=== PATIENT | female | born 1970 | race Caucasian/White ===

== ENCOUNTER → 2021-12-01 13:28 | Outpatient (BNVA) | payer SELFPAY | PROVIDERS: Family Provider Family Medicine; PCP Family Medicine; Visit Provider Nurse Practitioner Family | DX: R39.9 Unspecified symptoms and signs involving the genitourinary system (principal); N39.0 Urinary tract infection, site not specified; R31.9 Hematuria, unspecified | CPT/HCPCS: 81000 ==

== ENCOUNTER 2024-02-05 05:33 | Inpatient (IN) | payer SELFPAY ==
[2024-02-05] VITALS (82 sets, daily range): BP systolic 71–166; BP diastolic 51–123; PULSE 83–134; RESP 13–35; TEMP 36.8–37.1; O2SAT 8–100; BMI 31.2; BMI 30.9
--- NOTE | 2024-02-05 05:39 | XRR_ITS ---
PROCEDURE INFORMATION: Exam: XR Chest Exam date and time: 02/05/2024 5:45 AM Age: 53 years old Clinical indication: Pain; Chest pressure; Additional info: Cp TECHNIQUE: Imaging protocol: Radiologic exam of the chest. Views: 1 view. COMPARISON: No relevant prior studies available. FINDINGS: Lungs: Unremarkable. No consolidation. Pleural spaces: Unremarkable. No pleural effusion. No pneumothorax. Heart/Mediastinum: Unremarkable. No cardiomegaly. Bones/joints: Unremarkable. XR/XR chest 1V portable [id number] IMPRESSION: No acute findings.
[2024-02-05] MEDS: aspirin 325 mg Tablet PO (05:47)
[2024-02-05] MEDS: clopidogrel 300 mg Tablet 600 MG PO (05:47)
[2024-02-05] MEDS: heparin 5,000 unit/mL INJ 1 mL 4000 UNIT IVP (05:48)
--- NOTE | 2024-02-05 05:49 | ECG_ITS ---
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 Measurements Intervals [place] Rate: 117 P: 80 SC: 152 QRS: 115 QRSD: 101 T: 110 QT: 438 QTc: 613 Interpretive Statements SINUS TACHYCARDIA LEFT POSTERIOR FASCICULAR BLOCK [QRS AXIS > 109, INFERIOR Q] LATERAL MYOCARDIAL INFARCTION , PROBABLY RECENT [40+ ms Q WAVE AND/OR ST/T ABNORMALITY IN I/aVL/V5/V6] ACUTE IA No previous ECG available for comparison Electronically Signed On 02-08-2024 20:39:28 DOUBLE END TENON OPERATOR by Xu Abdul M.D. [id number]
--- NOTE | 2024-02-05 05:50 | ED_ITS ---
HPI - Chest Pain 2 General: Chief Complaint: Chest Pain Stated Complaint: chest pain Time Seen by Provider: 02/05/24 05:39 Source: patient Mode of arrival: ambulatory Limitations: no limitations History of Present Illness: 53-year-old female states she started hills ving chest pain left side of her chest roughly 3 hours ago. States she woke up with it at sharp pressure-like pain left side of her chest she rates a 9 out of 10. She had some dyspnea earlier denies any shortness of breath currently. She denies any worsening improving factors. No history of coronary artery disease states she has a history of hypertension is a smoker. Associated symptoms: Deny abdominal pain, dyspnea, fever(s), nausea or vomiting Related Data Previous Rx's Medication Instructions Recorded nitrofurantoin 100 mg PO Q12H 5 days #10 caps 12/01/21 monohydrate/macrocrystals 100 mg capsule (Macrobid) Allergies Allergy/AdvReac Type Severity Reaction Status Date / Time ciprofloxacin [From Cipro] Allergy ADR-Nausea Verified 02/05/24 05:39 Sulfa (Sulfonamide Allergy ALGY-Rash Verified 02/05/24 05:39 Antibiotics) Review of Systems 2 Const: Denies: fever(s), chills, body aches or change in appetite ENMT: Denies: throat pain or dental pain Card: Reports: chest pain Resp: Denies: dyspnea GI: Denies: abdominal pain, nausea, vomiting or diarrhea Musc: Denies: neck pain or back pain Skin/Breast: Denies: rash Neuro: Denies: headache(s) Physical Exam 2 Const: COMMON NORMALS: patient oriented x3 HENMT: COMMON NORMALS: normocephalic and atraumatic HEAD & SCALP: n ormocephalic and atraumatic Eye: COMMON NORMALS: Equal, round and reactive pupils present and EOMs intact bilaterally PUPIL: Yes Equal, round and reactive pupils present Neck/C-Spine: COMMON NORMALS: full ROM and supple Chest: COMMONS NORMALS: normal inspection of the chest and normal palpation of entire chest wall Resp: COMMON NORMALS: normal respiratory effort, No retractions, No use of accessory muscles and clear to auscultation bilaterally AUSCULTATION: clear to auscultation bilaterally Cardio: COMMON NORMALS: regular rate, regular rhythm and No murmurs present (Cardio) RATE: regular rate RHYTHM: regular rhythm GI: COMMON NORMALS: Normal to inspection, nondistended, normoactive bowel sounds present, Soft to palpation, non-tender and no masses PALPATION: Yes Soft to palpation Extremity: COMMON NORMALS: normal to inspection and full ROM Neuro: COMMON NORMALS: patient oriented x3, moves all extremities and no focal motor deficits Psych: COMMON NORMALS: mental status grossly normal, Normal thought process present and cooperative THOUGHT PROCESS: Normal thought process present Skin: COMMON NORMALS: no rashes or lesions noted and no wounds GENERAL SKIN EXAM: no rashes or lesions noted Course 2 Vital Signs: Vital signs: Vital Signs Temperature 98.7 F 02/05/24 05:38 Pulse Rate 114 H 02/05/24 07:00 Respiratory Rate 23 H 02/05/24 07:00 Blood Pressure 124/84 02/05/24 07:00 Pulse Oximetry 96 02/05/24 07:00 Oxygen Delivery Me thod Room Air 02/05/24 06:10 MDM - Chest Pain Medical Decision Making Patient presents here with chest pain EKG showed some concerning findings with minimal elevation did call STEMI alert and reviewed the EKG with production support engineer and does not have the 2 mm criteria for STEMI at this time stimulator was called off to do repeat EKGs that showed no changes had a mild troponin elevation she is continued to have pain here consistent with unstable angina patient was seen in the ER by production support engineer and is taking to the Lawn And Garden Technician for unstable angina. Medical Records I reviewed the patient's medical records. Lab Data I reviewed the patient's lab results. 02/05/24 05:45 02/05/24 05:45 Radiology Impressions Chest X-Ray 02/05/24 05:39 IMPRESSION: No acute findings. Laboratory Results WBC 13.70 10^3/uL (3.29-11.43) H 02/05/24 05:45 RBC 4.93 10^6/uL (3.85-5.65) 02/05/24 05:45 Hgb 8.40 g/dL (11.27-16.99) L 02/05/24 05:45 Hct 31.2 % (36-47) L 02/05/24 05:45 MCV 63.3 fl (85-98) L 02/05/24 05:45 MCH 17.0 pg (27-33) L 02/05/24 05:45 MCHC 26.9 g/dL (30-55) L 02/05/24 05:45 RDW 19.7 % (12.1-15.1) H 02/05/24 05:45 Plt Count 438 10^3/cmm (157-399) H 02/05/24 05:45 MPV 9.3 fL (7.4-10.4) 02/05/24 05:45 Neut % (Auto) 80.6 % 02/05/24 05:45 Lymph % (Auto) 15.9 % 02/05/24 05:45 [place] % (Auto) 2.6 % 02/05/24 05:45 Eos % (Auto) 0.0 % 02/05/24 05:45 Baso % (Auto) 0.5 % 02/05/24 05:45 Neut # (Auto) 11.04 10^3/uL (1.8-7.7) H 02/05/24 05:45 Lymph # (Auto) 2.2 10^3/uL (0.8-4.8) 02/05/24 05:45 [place] # (Auto) 0.4 10^3/uL (0.2-0.9) 02/05/24 05:45 Eos # (Auto) 0.0 10^3/uL (0.0-0.8) 02/05/24 05:45 Baso # (Auto) 0.1 10^3/uL (0.0-0.1) 02/05/24 05:45 Nucleated RBC % (auto) 0 % 02/05/24 05:45 Nucleated RBCs # 0.0 /100WBC 02/05/24 05:45 D-Dimer 0.44 ug/mLFEU (0-0.59) 02/05/24 05:45 Sodium 136 mmol/L (136-145) 02/05/24 05:45 Potassium 3.1 mmol/L (3.5-5.1) L 02/05/24 05:45 Chloride 97 mmol/L (98-107) L 02/05/24 05:45 Carbon Dioxide 21 mmol/L (22-29) L 02/05/24 05:45 Anion Gap 21.1 (5-19) H 02/05/24 05:45 BUN 5 mg/dL (6-20) L 02/05/24 05:45 Creatinine 0.7 mg/dL (0.5-0.9) 02/05/24 05:45 GFR Calculation 87.9 mL/min (90-130) L 02/05/24 05:45 Glucose 161 mg/dL (65-115) H 02/05/24 05:45 Calculated Osmolality 283 mOsm/kg (285-295) L 02/05/24 05:45 Calcium 9.2 mg/dL (8.5-10.5) 02/05/24 05:45 Total Bilirubin 0.6 mg/dL (0.15-1.2) 02/05/24 05:45 AST 18 U/L (0-32) 02/05/24 05:45 ALT 11 U/L (0-33) 02/05/24 05:45 Alkaline Phosphatase 101 U/L (35-105) 02/05/24 05:45 Troponin T Baseline 82 ng/L (0-10) H 02/05/24 05:45 NT-Pro-B Natriuret Pep 2329 pg/mL (0-125) H 02/05/24 05:45 Total Protein 7.5 g/dL (6.6-8.7) 02/05/24 05:45 Albumin 4.8 g/dL (3.5-5.2) 02/05/24 05:45 Globulin 2.7 g/dL (1.3-4.6) 02/05/24 05:45 Lipase 30 U/L (13-60) 02/05/24 05:45 All radiology interpretation(s) finalized by discharge Discharge Plan Discharge Condition: Stable Prescriptions: No Action nitrofurantoin monohyd/m-cryst [Macrobid] 100 mg capsule 100 mg PO Q12H 5 Days Qty: 10 0RF Rx Instructions: must administer with a meal/food Coding Level of Care Code ED Smoking Pipe Mounter for Mervat Read
[2024-02-05 05:51] LABS: Basophils # 0.1 10^3/uL (0.0-0.1); Basophils % 0.5 %; Hematocrit 31.2 % (36-47); Lymphocytes # 2.2 10^3/uL (0.8-4.8); Lymphocytes % 15.9 %; Mean Corpuscular HGB Conc 26.9 g/dL (30-55); Mean Corpuscular Volume 63.3 fl (85-98); Mean Platelet Volume 9.3 fL (7.4-10.4); Monocytes # 0.4 10^3/uL (0.2-0.9); Monocytes % 2.6 %; Neutrophils # 11.04 10^3/uL (1.8-7.7); Neutrophils % 80.6 %; Nucleated Red Blood Cells % 0 %; Platelet Count 438 10^3/cmm (157-399); Red Blood Count 4.93 10^6/uL (3.85-5.65); Red Cell Distribution Width 19.7 % (12.1-15.1)
[2024-02-05] MEDS: ondansetron 2 mg/ML SDV 2 mL 4 MG IVP (05:52)
[2024-02-05] MEDS: morphine 4 mg/mL SDV 1 mL IVP (05:53)
--- NOTE | 2024-02-05 06:01 | ECG_ITS ---
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 Measurements Intervals [place] Rate: 113 P: 65 DC: 159 QRS: 65 QRSD: 108 T: 66 QT: 302 QTc: 415 Interpretive Statements SINUS TACHYCARDIA NONSPECIFIC ST & T-WAVE ABNORMALITY ABNORMAL RHYTHM ECG No previous ECG available for comparison Electronically Signed On 02-05-2024 21:18:03 REFRIGERATOR CAR ICER by Xu Abdul M.D. [id number]
[2024-02-05 06:07] LABS: D Dimer 0.44 ug/mLFEU (0-0.59)
[2024-02-05 06:09] LABS: Troponin(5th) Baseline 82 ng/L (0-10)
[2024-02-05 06:11] LABS: Alanine Aminotransferase 11 U/L (0-33); Albumin Level 4.8 g/dL (3.5-5.2); Alkaline Phosphatase 101 U/L (35-105); Anion Gap 21.1 (5-19); Aspartate Amino Transferase 18 U/L (0-32); Blood Urea Nitrogen 5 mg/dL (6-20); Calcium 9.2 mg/dL (8.5-10.5); Carbon Dioxide 21 mmol/L (22-29); Chloride 97 mmol/L (98-107); Creatinine Clr Calc Pharmacy 97.7173; Globulin 2.7 g/dL (1.3-4.6); Glomerular Filtration Rate 87.9 mL/min (90-130); Glucose 161 mg/dL (65-115); Lipase 30 U/L (13-60); Osmolality Calculated 283 mOsm/kg (285-295); Potassium 3.1 mmol/L (3.5-5.1); Sodium 136 mmol/L (136-145); Total Bilirubin 0.6 mg/dL (0.15-1.2); Total Protein 7.5 g/dL (6.6-8.7)
[2024-02-05] MEDS: nitroglycerin 0.4 mg sublingual Tablet SUBLINGUAL (06:41)
[2024-02-05 06:43] LABS: NT Pro B Type Natriuretic Pept 2329 pg/mL (0-125)
--- NOTE | 2024-02-05 07:04 | PC.NURSE ---
Patient became hypotensive after 1 nitroglycerin and states I feel like I am going to pass out . Patient fell back into the bed and briefly became unresponsive. Dr. Hunt notified and present at bedside. Patient's blood pressure returned to baseline shortly after awakening.
--- NOTE | 2024-02-05 07:16 | P.CONIM_ITS ---
Providers/Reason For Consult 2 Consulting Physician/Specialty*: Roldan Jc MD/cardiology Reason for Consult*: Recurrent chest pains Unstable angina Abnormal EKG Abnormal cardiac markers Tachycardia Primary Care Provider: David Kingston History of Present Illness History of Present Illness Ayana Seaman is a 53 year old female past medical history significant for continuous tobacco abuse hypertension hyperlipidemia family history of heart problem presented with chest pain which awakened her from the sleep this morning. Twelve-lead EKG has subtle ST changes not quite meeting criteria for ST elevation IL, troponin came back around 80 which is highly sensitive, since patient continues to have chest pain off and on and recurrent basis will proceed with left heart cath with the suspicion of ACS. BNP is elevated at more than 2000. X-ray chest does not consistent with pulmonary edema. D-dimer is negative. Patient has been explained all risk-benefit and alternative for procedure. She would like to proceed with it. Medications/Allergies Home Medications Medication Instructions Recorded Confirmed Last Taken Type No Known Home Medications 02/05/24 02/05/24 Unknown History Allergies Allergy/AdvReac Type Severity Reaction Status Date / Time ciprofloxacin [From Cipro] Allergy ADR-Nausea Verified 02/05/24 05:39 Sulfa (Sulfonamide Allergy ALGY-Rash Verified 02/05/24 05:39 Antibiotics) PFSH Acute 2 PFSH: Medical History (Updated 02/06/24 @ 17:37 by Roldan Jc MD) Essential hypertension Vitals/I&O/Wt Last Vital Signs Temp 98.7 F 02/05/24 05:38 Pulse 114 H 02/05/24 07:00 Resp 23 H 02/05/24 07:00 BP 124/84 02/05/24 07:00 Pulse Ox 96 02/05/24 07:00 O2 Del Method Room Air 02/05/24 06:10 Weight last 48 hrs Weight 182 lb Physical Exam 2 Const: OTHER: GENERAL: Patient is alert, awake and oriented x3. Patient is moderate distress sitting in the bed as cannot breathe when she lay down HEART: Regular S1 and S2. No murmur, rub or gallop. LUNGS: Creased breath sounds to auscultate bilaterally. CENTRAL NERVOUS SYSTEM: Grossly nonfocal. EXTREMITIES: Lower extremities with out edema bilaterally. Data 02/06/24 05:04 02/06/24 05:04 A&P Assessment and plan (1) CHF (NYHA class IV, ACC/AHA stage D): Patient is in acute decompensated systolic heart failure will proceed with IV diuretics BiPAP and to leave ischemia with left heart cath (2) NSTEMI (non-ST elevated myocardial infarction): Twelve-lead EKG is not consistent with ST elevation IL most likely patient is going through non-ST elevation IL she had a prior episodes of chest pain we will proceed with left heart cath since he continues to have chest pressure pain and worsening of shortness of breath with decompensated heart failure (3) Essential hypertension: Appear to be elevated will optimize medications (4) Tobacco abuse: Advised quitting smoking. (5) Tooth abscess: Will advise antibiotics Plan Plan for left heart catheterization on urgent basis using BiPAP diuretics as patient going through acute coronary syndrome most likely culprit left side of coronary bed Consult Attestations 2 Medical Necessity Statement: I am expecting patient stay to cross more than 2 midnight he will be admitted to the ICU given her condition post angiogram/PCI Coding Level of Care Code Acute Code for [facility] Diagnoses CHF (NYHA class IV, ACC/AHA stage D) I50.84 NSTEMI (non-ST elevated myocardial infarction) I21.4 Essential hypertension I10 Tobacco abuse Z72.0 Tooth abscess K04.7
--- NOTE | 2024-02-05 07:19 | W.PM.OPSUD ---
Surgery/Procedure H&P Update DATE OF PROCEDURE: February 05, 2024 DATE H&P PERFORMED: 02/05/24 H&P UPDATE INFORMATION: I have reviewed H&P completed within last 30 days, I have examined patient prior to procedure and No changes to prior documentation PREOP DIAGNOSIS: ACS PRIMARY INDICATION FOR PROCEDURE: Recurrent chest pain Elevated cardiac marker Abnormal EKG PATIENT REASSESSED PRIOR TO SEDATION, WITH NO CHANGE NOTED: Yes PHYSICAL EXAM: alert, oriented x 3, clear to auscultation bilaterally, regular rate & rhythm and operative site marked AIRWAY EVAL/ANESTHESIA PLAN: ASA II, Risks, benefits & alternatives of sedation and/or procedure discussed and Patient agrees to continue as planned ADDITIONAL INFORMATION: Mallampati 2
--- NOTE | 2024-02-05 07:39 | ECG_ITS ---
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 Measurements Intervals [place] Rate: 107 P: 72 KS: 135 QRS: 83 QRSD: 92 T: 62 QT: 369 QTc: 494 Interpretive Statements SINUS TACHYCARDIA ST DEPRESSION, CONSIDER SUBENDOCARDIAL INJURY [0.1+ mV ST DEPRESSION] Compared to ECG 02/05/2024 06:01:44 ST (T wave) deviation now present T-wave abnormality no longer present Electronically Signed On 02-08-2024 20:39:46 TASSEL SNIPPER by Xu Abdul M.D. [id number]
--- NOTE | 2024-02-05 08:35 | USCV_ITS ---
Ayana Seaman Age: 53 Gender: F : 1970 Exam Date: 02/05/2024 08:59 Ordering Phys: Roldan Jc MD ([email or web address]) Technologist: Exam Location: [facility] [place] Indication: nstimi BP: 138 / 101 HR: 90 Rhythm: Sinus Technical Quality: Adequate MEASUREMENTS (Male / Female) Normal Values 2D ECHO LV Diastolic Diameter PLAX 4.6 cm 4.2 - 5.9 / 3.9 - 5.3 cm IVS Diastolic Thickness 1.2 cm 0.6 - 1.0 / 0.6 - 0.9 cm IVS Systolic Thickness 1.2 cm LVPW Diastolic Thickness 1.1 cm 0.6 - 1.0 / 0.6 - 0.9 cm LVPW Systolic Thickness 1.7 cm LVOT Diameter 2.0 cm LV Ejection Fraction 2D Teich 27.7 % LV Ejection Fraction MOD 4C 18.7 % LV Ejection Fraction MOD 2C 45.3 % LV Ejection Fraction 2C AL 45.7 % LA Diameter 3.3 cm RA Systolic Volume 4C AL 42.0 ml RA Systolic Volume 4C MOD 39.2 ml Aorta at Sinotubular Diameter 2.7 cm M-MODE LA Ao Ratio MM 1.3 AV Cusp Separation MM 2.3 cm DOPPLER AV Peak Velocity 107.0 cm/s LVOT Peak Velocity 76.0 cm/s AV Area Cont Eq vti 2.6 cm squared AV Area Cont Eq pk 2.3 cm squared MV Peak Velocity 125.0 cm/s TV Peak Velocity 202.0 cm/s TR Peak Velocity 284.0 cm/s TR Peak Gradient 32.3 mmHg TV Peak E Velocity 80.0 cm/s Right Atrial Pressure 3.0 mmHg Pulmonary Artery Systolic Pressu 35.3 mmHg PV Peak Velocity 98.0 cm/s FINDINGS Left Ventricle Moderately increased left ventricular cavity size. Severely decreased left ventricular systolic function. Left ventricular ejection fraction is estimated at 30 %. There appeared to be mid to distal anterior and apical wall severe hypokinesis suggestive of lesion in the LAD.Grade II/IV diastolic dysfunction, moderately elevated filling pressures. Right Ventricle The right ventricle is normal in size and function. Right Atrium The right atrium is normal in size. Left Atrium The left atrium is normal in size. Mitral Valve Mildly thickened mitral valve. No mitral valve stenosis. Moderate-severe mitral valve regurgitation. Aortic Valve Structurally normal aortic valve without significant sclerosis or stenosis. There is no aortic regurgitation. Tricuspid Valve Structurally normal tricuspid valve without significant stenosis or regurgitation. Pulmonary artery systolic pressure is normal. Pulmonic Valve Structurally normal pulmonic valve without significant stenosis. There is no pulmonic regurgitation. Pericardium Normal pericardium without effusion. Aorta Normal ascending aorta dimension. IVC The inferior vena cava appears normal. CONCLUSIONS Moderately increased left ventricular cavity size. Severely decreased left ventricular systolic function. Left ventricular ejection fraction is estimated at 30 %. There appeared to be mid to distal anterior and apical wall severe hypokinesis suggestive of lesion in the LAD.Grade II/IV diastolic dysfunction, moderately elevated filling pressures. Mildly thickened mitral valve. No mitral valve stenosis. Moderate-severe mitral valve regurgitation. There is no pericardial effusion. Pulmonary artery systolic pressure is within normal limits. Right atrial pressure is around 15 mm of mercury. Roldan Jc MD (Electronically Signed) Final Date: 05 February 2024 20:40 S
[2024-02-05] MEDS: aspirin 81 mg EC Tablet PO (09:37)
[2024-02-05] MEDS: clopidogrel 75 mg Tablet PO (09:37)
[2024-02-05] MEDS: potassium chloride ER 20 mEq Tablet 40 MEQ PO ×2 (09:38→17:07)
[2024-02-05] MEDS: lidocaine 1% 5 ML in potassium chloride premix 100 ML 26.25 ML IV (09:55)
--- NOTE | 2024-02-05 11:39 | ECG_ITS ---
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 Measurements Intervals [place] Rate: 95 P: 55 MA: 144 QRS: 62 QRSD: 101 T: 47 QT: 378 QTc: 477 Interpretive Statements SINUS RHYTHM ST DEVIATION AND MODERATE T-WAVE ABNORMALITY, CONSIDER ANTERIOR ISCHEMIA [-0.1+ mV T-WAVE IN V3/V4] Compared to ECG 02/05/2024 06:49:06 T-wave abnormality now present Possible ischemia now present Sinus tachycardia no longer present ST (T wave) deviation no longer present Electronically Signed On 02-08-2024 20:40:23 WATERWORKS OPERATOR by Xu Abdul M.D. [id number]
[2024-02-05] MEDS: pantoprazole DR 40 mg Tablet PO (13:01)
[2024-02-05 13:36] LABS: Troponin 5 6HR 2812 ng/L (0-10); Troponin 5 6HR Delta 2730 ng/L (0-12)
--- NOTE | 2024-02-05 15:47 | P.PN_ITS ---
Documented by User: Sangita Thurston NP 02/05/24 15:51 Subjective 2 Subjective: Patient is status post stent to a complete total occlusion of an LAD and ballooning to the diagonal. She is having some reflux symptoms. She has a history of this. Will add Protonix. Otherwise patient is stable. Medications: Reviewed: Yes Vitals/I&O/Wt Last Vital Signs Temp 98.7 F 02/05/24 05:38 Pulse 117 H 02/05/24 15:33 Resp 22 H 02/05/24 08:50 BP 126/83 02/05/24 08:50 Pulse Ox 8 L 02/05/24 11:13 O2 Del Method Room Air 02/05/24 11:13 02/05/24 02/05/24 02/05/24 06:59 14:59 22:59 Intake Total 345 / 345 Balance 345 / 345 Weight last 48 hrs Weight 180 lb 8 oz Weight 182 lb Physical Exam 2 Narrative: General: No apparent distress, healthy appearing, well nourished Neck: No carotid bruit bilaterally Muskuloskeletal: Full ROM Respiratory: Normal respiratory effort, clear to auscultation bilaterally throughout all lung swann, no use of accessory muscles Cardio: No JVD, regular rate, regular rhythm, S1 S2 normal, no murmurs, peripheral pulses 2+ throughout Extremities: Full ROM, normal, normal capillary refill, no cyanosis or edema Neuro: Alert and oriented x4, no focal motor deficits Psych: Affect normal, denies suicidal ideation, mental status grossly normal Skin: cath site w/o hematoma Data 02/06/24 05:04 02/06/24 05:04 A&P Assessment and plan (1) NSTEMI (non-ST elevated myocardial infarction): As stated above. (2) CHF (NYHA class IV, ACC/AHA stage D): Continue diuresis. Patient had elevated LVEDP. Potassium being replaced IV and PO. (3) Essential hypertension: (4) Tobacco abuse: (5) Tooth abscess: Plan Continue dual antiplatelet therapy continue diuresis. Add Protonix for reflux symptoms. Will repeat labs in AM. Monitor for chest pain or EKG changes Attestations 2 Medical Necessity Statement*: Patient requires more than 2 midnights of stay due to NSTEMI status post stent to the LAD and balloon angioplasty to the diagonal Coding Level of Care Code Acute Code for [facility] Diagnoses NSTEMI (non-ST elevated myocardial infarction) I21.4 CHF (NYHA class IV, ACC/AHA stage D) I50.84 Essential hypertension I10 Tobacco abuse Z72.0 Tooth abscess K04.7 Documented by User: Roldan Jc MD 02/06/24 17:52 Subjective 2 Subjective: Patient was evaluated and cared for in conjunction with an advanced practice practitioner. I personally examined the patient and reviewed the chart and all pertinent data including imaging, telemetry, and laboratory results. I discussed the patient in detail with the advanced practice practitioner. Please see their note for complete H&P testing result and agreed upon plan of care for the patient. Feeling better still short of breath Patient is status post stent to a complete total occlusion of an LAD and ballooning to the diagonal. She is having some reflux symptoms. She has a history of this. Will add Protonix. Otherwise patient is stable. Physical Exam 2 Const: COMMON NORMALS: alert OTHER: GENERAL: Patient is alert, awake and oriented x3. Patient is moderate distress sitting in the bed as cannot breathe when she lay down HEART: Regular S1 and S2. No murmur, rub or gallop. LUNGS: Creased breath sounds to auscultate bilaterally. CENTRAL NERVOUS SYSTEM: Grossly nonfocal. EXTREMITIES: Lower extremities with out edema bilaterally. Resp: COMMON NORMALS: clear to auscultation bilaterally AUSCULTATION: clear to auscultation bilaterally Neuro: SENSORIUM/ORIENTATION: Yes alert Data 02/06/24 05:04 02/06/24 05:04 A&P Assessment and plan (1) NSTEMI (non-ST elevated myocardial infarction): Status post drug-eluting stent to mid LAD however patient landlady appeared to be chronically occluded, she has acute on chronic insult with decompensated heart failure leading to chest pain and shortness of breath (2) CHF (NYHA class IV, ACC/AHA stage D): New onset of heart failure due to severe LV dysfunction and ischemic cardiomyopathy, will start patient on IV Lasix, Will replace electrolyte, once euvolemic will optimize medication and start patient on Entresto (3) Essential hypertension: Appear to be elevated will optimize medications (4) Tobacco abuse: Advised quitting smoking. (5) Tooth abscess: Will advise antibiotics Attestations 2 Medical Necessity Statement*: Patient requires more than 2 midnights of stay due to NSTEMI status post stent to the LAD and balloon angioplasty to the diagonal. New onset of heart failure Coding Level of Care Code Acute Code for [facility] Diagnoses NSTEMI (non-ST elevated myocardial infarction) I21.4 CHF (NYHA class IV, ACC/AHA stage D) I50.84 Essential hypertension I10 Tobacco abuse Z72.0 Tooth abscess K04.7
[2024-02-05] MEDS: FUROsemide 10 mg/mL SDV 10mL 60 MG IVP (20:11)
[2024-02-05] MEDS: atorvastatin 40 mg Tablet 80 MG PO (20:11)
[2024-02-06] VITALS (51 sets, daily range): BP systolic 87–126; BP diastolic 54–77; PULSE 75–111; RESP 12–33; TEMP 36.6–37.3; O2SAT 86–99; BMI 30.4
[2024-02-06 05:43] LABS: Basophils # 0.1 10^3/uL (0.0-0.1); Basophils % 0.7 %; Eosinophils # 0.1 10^3/uL (0.0-0.8); Eosinophils % 1.1 %; Hematocrit 29.8 % (36-47); Lymphocytes # 4.1 10^3/uL (0.8-4.8); Lymphocytes % 37.7 %; Mean Corpuscular HGB Conc 27.2 g/dL (30-55); Mean Corpuscular Hemoglobin 17.1 pg (27-33); Mean Corpuscular Volume 62.7 fl (85-98); Mean Platelet Volume 10.3 fL (7.4-10.4); Monocytes # 0.6 10^3/uL (0.2-0.9); Monocytes % 5.6 %; Neutrophils # 5.89 10^3/uL (1.8-7.7); Neutrophils % 54.6 %; Nucleated Red Blood Cells % 0 %; Platelet Count 407 10^3/cmm (157-399); Red Blood Count 4.75 10^6/uL (3.85-5.65); Red Cell Distribution Width 19.9 % (12.1-15.1); White Blood Count 10.81 10^3/uL (3.29-11.43)
[2024-02-06 06:04] LABS: Anion Gap 17.8 (5-19); Blood Urea Nitrogen 8 mg/dL (6-20); Calcium 8.3 mg/dL (8.5-10.5); Carbon Dioxide 24 mmol/L (22-29); Chloride 100 mmol/L (98-107); Creatinine Clr Calc Pharmacy 75.6879; Glomerular Filtration Rate 65.8 mL/min (90-130); Glucose 127 mg/dL (65-115); Osmolality Calculated 286 mOsm/kg (285-295); Potassium 3.8 mmol/L (3.5-5.1); Sodium 138 mmol/L (136-145)
[2024-02-06] MEDS: aspirin 81 mg EC Tablet PO (08:30)
[2024-02-06] MEDS: clopidogrel 75 mg Tablet PO (08:30)
[2024-02-06] MEDS: pantoprazole DR 40 mg Tablet PO (08:30)
[2024-02-06] MEDS: FUROsemide 10 mg/mL SDV 10mL 60 MG IVP ×2 (08:30→20:16)
--- NOTE | 2024-02-06 11:39 | P.PN_ITS ---
Documented by User: Sangita Thurston NP 02/06/24 15:44 Subjective 2 Subjective: Patient is doing well this morning. No chest pain or shortness of breath noted. She does still have some crackles bilateral lower lobes. EF from previous echo was 30%. Continue dual antiplatelet therapy including aspirin and Plavix. No abnormal bleeding. Cath site looks good. She states she has an abscessed tooth that she was post to get fixed prior to this. It does drain. Upon assessment she does have a couple of infected teeth. Denies fever chills or bodyaches Medications: Reviewed: Yes Vitals/I&O/Wt Last Vital Signs Temp 98.1 F 02/06/24 04:30 Pulse 80 02/06/24 07:45 Resp 21 H 02/06/24 07:45 BP 105/69 02/06/24 07:45 Pulse Ox 94 02/06/24 07:45 O2 Del Method Room Air 02/06/24 06:00 O2 Flow Rate 2 02/06/24 02:00 02/05/24 02/06/24 02/06/24 22:59 06:59 14:59 Intake Total 716 / 1061 Balance 716 / 1061 Weight last 48 hrs Weight 177 lb 4.026 oz Weight 180 lb 8 oz Weight 182 lb Physical Exam 2 Narrative: General: No apparent distress, healthy appearing, well nourished HENMT: Patient has 2-3 teeth that appear to be infected no active drainage at this time but patient states they have been draining previously Neck: No carotid bruit bilaterally Muskuloskeletal: Full ROM Lymphatic: no lymphedema noted Respiratory: Normal respiratory effort, bilateral lower lobes crackles, no use of accessory muscles Cardio: No JVD, regular rate, regular rhythm, S1 S2 normal, no murmurs, 2+ radial pulses bilaterally GI: Normal to inspection, nondistended Extremities: Full ROM, normal, normal capillary refill, no cyanosis or edema Neuro: Alert and oriented x4, no focal motor deficits Psych: Affect normal, denies suicidal ideation, mental status grossly normal Skin: Cath site to the right wrist is clean dry intact no signs of hematoma or pseudoaneurysm Data 02/06/24 05:04 02/06/24 05:04 A&P Assessment and plan (1) Unstable angina pectoris: Status post stent to a chronically occluded LAD and balloon angioplasty of the diagonal. Patient will continue aspirin and Plavix. (2) NSTEMI (non-ST elevated myocardial infarction): As stated above. (3) CHF (NYHA class IV, ACC/AHA stage D): Continue diuresis. Patient had elevated LVEDP. Potassium being replaced IV and PO. Will order life vest. EF is 30%. (4) Tooth abscess: Will start Augmentin twice daily. Patient will follow-up with dentist outpatient Plan Continue dual antiplatelet therapy continue diuresis. Add Protonix for reflux symptoms. Will repeat labs in AM. Monitor for chest pain or EKG changes patient may be transferred to cardiac stepdown unit at this time. Will start Augmentin for tooth abscess. Monitor for signs or symptoms of systemic infection Attestations 2 Medical Necessity Statement*: Patient requires more than 2 midnights of stay due to NSTEMI status post stent to the LAD and balloon angioplasty to the diagonal Coding Level of Care Code Acute Code for Chg Fwd Diagnoses Unstable angina pectoris I20.0 NSTEMI (non-ST elevated myocardial infarction) I21.4 CHF (NYHA class IV, ACC/AHA stage D) I50.84 Tooth abscess K04.7 Documented by User: Roldan Jc MD 02/06/24 18:39 Subjective 2 Subjective: Patient was evaluated and cared for in conjunction with an advanced practice practitioner. I personally examined the patient and reviewed the chart and all pertinent data including imaging, telemetry, and laboratory results. I discussed the patient in detail with the advanced practice practitioner. Please see their note for complete H&P testing result and agreed upon plan of care for the patient. Feeling much better except she is hurting with some face swelling due to tooth abscess She has diuresed well and breathing better GENERAL: Patient is alert, awake and oriented x3, facial swelling HEART: Regular S1 and S2. No murmur, rub or gallop. LUNGS: Clear to auscultate bilaterally. CENTRAL NERVOUS SYSTEM: Grossly nonfocal. EXTREMITIES: Lower extremities with out edema bilaterally. Assessment and plan Ischemic cardiomyopathy Newly onset of systolic heart failure Severe LV dysfunction with ejection fraction less than 30% Moderate to severe mitral regurgitation Tooth abscess Continues tobacco abuse Continue aspirin statin add beta-evelina, continue IV diuresis for 1 more day and switch to p.o. Lasix 40 mg once a day. Add Entresto before discharge LifeVest will be ordered due to reduced left ventricular ejection fraction less than 35% for primary prevention Cardiac rehab will be considered upon discharge Advised quitting smoking education was given Augmentin will be prescribed for tooth abscess. Patient can move to [facility]. Patient is doing well this morning. No chest pain or shortness of breath noted. She does still have some crackles bilateral lower lobes. EF from previous echo was 30%. Continue dual antiplatelet therapy including aspirin and Plavix. No abnormal bleeding. Cath site looks good. She states she has an abscessed tooth that she was post to get fixed prior to this. It does drain. Upon assessment she does have a couple of infected teeth. Denies fever chills or bodyache Data 02/06/24 05:04 02/06/24 05:04 A&P Assessment and plan (1) Unstable angina pectoris: (2) NSTEMI (non-ST elevated myocardial infarction): (3) CHF (NYHA class IV, ACC/AHA stage D): (4) Tooth abscess: Coding Level of Care Code Acute Code for [facility] Diagnoses Unstable angina pectoris I20.0 NSTEMI (non-ST elevated myocardial infarction) I21.4 CHF (NYHA class IV, ACC/AHA stage D) I50.84 Tooth abscess K04.7
[2024-02-06] MEDS: metoprolol succinate ER (24 HR) 25 mg Tablet 12.5 MG PO (13:37)
--- NOTE | 2024-02-06 17:00 | PC.NURSE ---
[employer] Life vest: document faxed. Jessica Estrada called, no answer. left voice message informing of faxed documents and life vest ordered this afternoon.
--- NOTE | 2024-02-06 17:14 | PC.NURSE ---
Report called to [facility]. Given to SEJAL Meyers. with pt at this time.
[2024-02-06] MEDS: potassium chloride ER 10 mEq Tablet 30 MEQ PO (17:39)
[2024-02-06] MEDS: amoxicillin-clav 875-125 mg Tablet 1 TAB PO (17:40)
--- NOTE | 2024-02-06 18:18 | PC.NURSE ---
Pt transferred to room 105. All belongings transferred with pt. packed up her things except for the vases of cunha. Further updates given to SEJAL Meyers.
[2024-02-06] MEDS: atorvastatin 40 mg Tablet 80 MG PO (20:16)
[2024-02-06] MEDS: acetaminophen 325 mg Tablet 650 MG PO (21:44)
[2024-02-07] VITALS (8 sets, daily range): BP systolic 79–118; BP diastolic 54–72; PULSE 75–96; RESP 15–24; TEMP 36.3–37.1; O2SAT 97–99
[2024-02-07 04:10] LABS: Basophils # 0.1 10^3/uL (0.0-0.1); Basophils % 0.8 %; Eosinophils # 0.2 10^3/uL (0.0-0.8); Eosinophils % 1.3 %; Hematocrit 30.4 % (36-47); Lymphocytes # 5.2 10^3/uL (0.8-4.8); Lymphocytes % 46.1 %; Mean Corpuscular HGB Conc 27.3 g/dL (30-55); Mean Corpuscular Hemoglobin 17.3 pg (27-33); Mean Corpuscular Volume 63.5 fl (85-98); Mean Platelet Volume 10.3 fL (7.4-10.4); Monocytes # 0.9 10^3/uL (0.2-0.9); Monocytes % 7.6 %; Neutrophils # 4.93 10^3/uL (1.8-7.7); Neutrophils % 43.8 %; Nucleated Red Blood Cells % 0 %; Platelet Count 418 10^3/cmm (157-399); Red Blood Count 4.79 10^6/uL (3.85-5.65); Red Cell Distribution Width 19.9 % (12.1-15.1); White Blood Count 11.25 10^3/uL (3.29-11.43)
[2024-02-07 04:39] LABS: Anion Gap 16.3 (5-19); Blood Urea Nitrogen 12 mg/dL (6-20); Calcium 9.6 mg/dL (8.5-10.5); Carbon Dioxide 27 mmol/L (22-29); Chloride 99 mmol/L (98-107); Creatinine Clr Calc Pharmacy 61.6344; Glomerular Filtration Rate 52.2 mL/min (90-130); Glucose 104 mg/dL (65-115); Osmolality Calculated 288 mOsm/kg (285-295); Potassium 3.3 mmol/L (3.5-5.1); Sodium 139 mmol/L (136-145)
[2024-02-07] MEDS: FUROsemide 10 mg/mL SDV 10mL 60 MG IVP (09:03)
[2024-02-07] MEDS: amoxicillin-clav 875-125 mg Tablet 1 TAB PO ×2 (09:04→16:42)
[2024-02-07] MEDS: potassium chloride ER 10 mEq Tablet 30 MEQ PO ×2 (09:04→16:43)
[2024-02-07] MEDS: clopidogrel 75 mg Tablet PO (09:04)
[2024-02-07] MEDS: pantoprazole DR 40 mg Tablet PO (09:05)
[2024-02-07] MEDS: metoprolol succinate ER (24 HR) 25 mg Tablet 12.5 MG PO (09:05)
[2024-02-07] MEDS: aspirin 81 mg EC Tablet PO (09:05)
[2024-02-07] MEDS: acetaminophen 325 mg Tablet 650 MG PO ×2 (11:15→16:42)
--- NOTE | 2024-02-07 15:17 | P.PN_ITS ---
Subjective 2 Subjective: Continue to feel better Continue to diurese Denies any chest pain Discussed with the patient LifeVest due to severely depressed left ventricle ejection fraction less than 30% by echocardiogram ischemic cardiomyopathy status post drug-eluting to mid LAD Medications: Reviewed: Yes Vitals/I&O/Wt Last Vital Signs Temp 97.4 F L 02/07/24 12:00 Pulse 85 02/07/24 14:00 Resp 20 H 02/07/24 12:00 BP 118/72 02/07/24 12:00 Pulse Ox 97 02/07/24 12:00 O2 Del Method Room Air 02/07/24 12:00 O2 Flow Rate 2 02/06/24 08:00 02/07/24 02/07/24 02/07/24 06:59 14:59 22:59 Intake Total 420 / 1020 600 / 600 Output Total 900 / 2650 Balance -480 / -1630 600 / 600 Weight last 48 hrs Weight 178 lb 12.718 oz Weight 177 lb 4.026 oz Physical Exam 2 Const: COMMON NORMALS: alert OTHER: GENERAL: Patient is alert, awake and oriented x3. HEART: Regular S1 and S2. No murmur, rub or gallop. LUNGS: Clear to auscultate bilaterally CENTRAL NERVOUS SYSTEM: Grossly nonfocal. EXTREMITIES: Lower extremities with out edema bilaterally. Resp: COMMON NORMALS: clear to auscultation bilaterally AUSCULTATION: clear to auscultation bilaterally Neuro: SENSORIUM/ORIENTATION: Yes alert Data 02/07/24 03:27 02/07/24 03:27 A&P Assessment and plan (1) NSTEMI (non-ST elevated myocardial infarction): Status post drug-eluting stent to mid LAD which is acute on chronic mid LAD stenosis completely occluded, patient has severely depressed left ventricular ejection fraction less than 30% continue aspirin statin clopidogrel and beta- evelina. (2) CHF (NYHA class IV, ACC/AHA stage D): Will switch patient to p.o. diuretics and add Entresto for severely depressed left ventricular ejection fraction. (3) Tooth abscess: Advised quitting smoking (4) Ischemic cardiomyopathy: Severely depressed left ventricular ejection fraction due to ischemic cardiomyopathy less than 30% advise LifeVest Plan Continue dual antiplatelet therapy continue diuresis. Add Protonix for reflux symptoms. Will repeat labs in AM. Monitor for chest pain or EKG changes patient may be transferred to cardiac stepdown unit at this time. Will start Augmentin for tooth abscess. Monitor for signs or symptoms of systemic infection Attestations 2 Medical Necessity Statement*: Patient require continued hospitalization for above defined care. Coding Level of Care Code Acute Code for Chg Fwd Diagnoses NSTEMI (non-ST elevated myocardial infarction) I21.4 CHF (NYHA class IV, ACC/AHA stage D) I50.84 Tooth abscess K04.7 Ischemic cardiomyopathy I25.5
[2024-02-07] MEDS: sacubitril/valsartan 24-26 mg Tablet 1 EACH PO (16:43)
[2024-02-07] MEDS: atorvastatin 40 mg Tablet 80 MG PO (20:26)
--- NOTE | 2024-02-07 20:49 | PC.NURSE ---
Patient bp was 97/63 and potassium was 3.3. Dr Parker notified and held 20:45 dose of lasix.
[2024-02-07] MEDS: HYDROcodone-acetaminophen 5-325 mg Tablet 1 TAB PO (23:15)
[2024-02-08] VITALS (10 sets, daily range): BP systolic 83–108; BP diastolic 55–72; PULSE 73–100; RESP 16–25; TEMP 36.4–37.1; O2SAT 95–100
[2024-02-08] MEDS: FUROsemide 10 mg/mL SDV 10mL 60 MG IVP (09:08)
[2024-02-08] MEDS: amoxicillin-clav 875-125 mg Tablet 1 TAB PO ×2 (09:08→17:29)
[2024-02-08] MEDS: metoprolol succinate ER (24 HR) 25 mg Tablet 12.5 MG PO (09:09)
[2024-02-08] MEDS: pantoprazole DR 40 mg Tablet PO (09:09)
[2024-02-08] MEDS: clopidogrel 75 mg Tablet PO (09:09)
[2024-02-08] MEDS: aspirin 81 mg EC Tablet PO (09:09)
[2024-02-08] MEDS: potassium chloride ER 10 mEq Tablet 30 MEQ PO ×2 (09:09→17:28)
[2024-02-08] MEDS: sacubitril/valsartan 24-26 mg Tablet 1 EACH PO (09:10)
--- NOTE | 2024-02-08 19:00 | P.PN_ITS ---
Subjective 2 Subjective: Feeling much better blood pressure dropped low last night felt dizzy at that time most likely because of Entresto and IV diuresis Medications: Reviewed: Yes Vitals/I&O/Wt Last Vital Signs Temp 97.7 F 02/08/24 16:00 Pulse 84 02/08/24 16:00 Resp 16 02/08/24 16:00 BP 102/71 02/08/24 16:00 Pulse Ox 98 02/08/24 16:00 O2 Del Method Room Air 02/08/24 16:00 O2 Flow Rate 2 02/06/24 08:00 02/08/24 02/08/24 02/08/24 06:59 14:59 22:59 Intake Total 240 / 1380 580 / 580 Output Total 1050 / 2100 Balance -810 / -720 580 / 580 Weight last 48 hrs Weight 198 lb 13.711 oz Weight 178 lb 12.718 oz Physical Exam 2 Const: COMMON NORMALS: alert OTHER: GENERAL: Patient is alert, awake and oriented x3. HEART: Regular S1 and S2. No murmur, rub or gallop. LUNGS: Clear to auscultate bilaterally CENTRAL NERVOUS SYSTEM: Grossly nonfocal. EXTREMITIES: Lower extremities with out edema bilaterally. Resp: COMMON NORMALS: clear to auscultation bilaterally AUSCULTATION: clear to auscultation bilaterally Neuro: SENSORIUM/ORIENTATION: Yes alert Data 02/07/24 03:27 02/07/24 03:27 A&P Assessment and plan (1) NSTEMI (non-ST elevated myocardial infarction): Status post PCI to mid LAD continue aspirin and statin Plavix and low-dose beta- evelina (2) CHF (NYHA class IV, ACC/AHA stage D): Well compensated rather dry will stop IV diuresis and switch to p.o. 40 mg of Lasix from tomorrow along with 20 meq of potassium chloride. Switch Entresto to once a day. (3) Tooth abscess: Continue antibiotics (4) Ischemic cardiomyopathy: LifeVest has been ordered for less than 30% ejection fraction because of ischemic cardiomyopathy, she will obtain tomorrow Plan Will reassess patient tomorrow morning if continues to do fine blood pressure hanks may possible discharge tomorrow Attestations 2 Medical Necessity Statement*: Patient require continuation of hospitalization for optimization of medicine post acute coronary syndrome and severely depressed left ventricular ejection fraction along with congestive heart failure acute on chronic Coding Level of Care Code Acute Code for Chg Fwd Diagnoses NSTEMI (non-ST elevated myocardial infarction) I21.4 CHF (NYHA class IV, ACC/AHA stage D) I50.84 Tooth abscess K04.7 Ischemic cardiomyopathy I25.5
--- NOTE | 2024-02-08 19:33 | PC.NURSE ---
called and spoke with , patient complaining of nausea. ordered PRN zofran IVP.
[2024-02-08] MEDS: ondansetron 2 mg/ML SDV 2 mL 4 MG IVP (20:06)
[2024-02-08] MEDS: atorvastatin 40 mg Tablet 80 MG PO (20:53)
[2024-02-09] VITALS: BP 110/72; PULSE 102; RESP 15; TEMP 36.7; O2SAT 97
[2024-02-09 04:00] VITALS: BP 105/60; PULSE 99; RESP 14; TEMP 36.6; O2SAT 99
[2024-02-09 05:52] VITALS: PULSE 92
[2024-02-09 07:41] VITALS: BP 116/65; PULSE 84; RESP 15; TEMP 36.7; O2SAT 98
[2024-02-09] MEDS: amoxicillin-clav 875-125 mg Tablet 1 TAB PO (09:21)
[2024-02-09] MEDS: sacubitril/valsartan 24-26 mg Tablet 1 EACH PO (09:21)
[2024-02-09] MEDS: pantoprazole DR 40 mg Tablet PO (09:22)
[2024-02-09] MEDS: aspirin 81 mg EC Tablet PO (09:22)
[2024-02-09] MEDS: clopidogrel 75 mg Tablet PO (09:22)
[2024-02-09] MEDS: potassium chloride ER 20 mEq Tablet PO (09:22)
[2024-02-09] MEDS: metoprolol succinate ER (24 HR) 25 mg Tablet 12.5 MG PO (09:22)
[2024-02-09] MEDS: ondansetron 2 mg/ML SDV 2 mL 4 MG IVP (09:30)
[2024-02-09 10:13] LABS: Basophils # 0.1 10^3/uL (0.0-0.1); Basophils % 0.8 %; Eosinophils # 0.2 10^3/uL (0.0-0.8); Eosinophils % 1.6 %; Hematocrit 32.7 % (36-47); Lymphocytes % 29.2 %; Mean Corpuscular HGB Conc 26.6 g/dL (30-55); Mean Corpuscular Hemoglobin 16.9 pg (27-33); Mean Corpuscular Volume 63.6 fl (85-98); Mean Platelet Volume 10.5 fL (7.4-10.4); Monocytes # 0.8 10^3/uL (0.2-0.9); Monocytes % 7.5 %; Neutrophils # 6.27 10^3/uL (1.8-7.7); Neutrophils % 60.4 %; Nucleated Red Blood Cells % 0 %; Platelet Count 487 10^3/cmm (157-399); Red Blood Count 5.14 10^6/uL (3.85-5.65); Red Cell Distribution Width 19.9 % (12.1-15.1); White Blood Count 10.38 10^3/uL (3.29-11.43)
--- NOTE | 2024-02-09 10:23 | PM.DCS ---
Discharge Providers Date of Admission: 02/05/24 07:58 Date of Discharge: February 09, 2024 Attending Provider at Admission: Roldan Jc MD Attending Provider at Discharge: Roldan Jc MD Consults: None Primary Care Provider: David Kingston Diagnoses at Discharge Discharge Diagnosis (1) NSTEMI (non-ST elevated myocardial infarction): Details from hospital stay: S/P stenting to the LAD. Continue dual antiplatelet therapy. Including aspirin and Plavix for 1 year. Status: Acute (2) CHF (NYHA class IV, ACC/AHA stage D): Details from hospital stay: Echo showed severely decreased left ventricular systolic function. Left ventricular ejection fraction is estimated at 30 %. There appeared to be mid to distal anterior and apical wall severe hypokinesis suggestive of lesion in the LAD.Grade II/IV diastolic dysfunction, moderately elevated filling pressures. Moderate-severe mitral valve regurgitation. Patient refused life vest. Entresto has been started. She is tolerating this with once daily well. Continue diruetics with lasix 40 mg daily with potassium supplementation. Will need repeat echo in 3 months. Status: Acute (3) Tooth abscess: Details from hospital stay: Continue Augmentin for at least 7 days. Patient will need to follow-up with dentist on outpatient basis. Status: Acute (4) Ischemic cardiomyopathy: Details from hospital stay: As stated above. Status: Acute Reason for Visit Reason for Visit: chest pain Brief History: Ayana Seaman is a 53 year old female past medical history significant for continuous tobacco abuse hypertension hyperlipidemia family history of heart problem presented with chest pain which awakened her from her sleep. Twelve-lead EKG had subtle ST changes not quite meeting criteria for ST elevation [place], troponin came back around 80 which is highly sensitive. BNP was elevated at more than 2000. Hospital Course Hospital Course Since patient continued to have chest pain off and on and recurrent basis, left heart cath was performed with the suspicion of ACS. X-ray chest was not consistent with pulmonary edema. D-dimer was negative. Patient had a chronically totally occluded LAD. This was stented. Patient was diuresed as well. She did develop some hypotension and medications were adjusted. She was transitioned to p.o. Lasix and started on Entresto. Blood pressure has been stable with this. Otherwise no complications Physical Exam Narrative: General: No apparent distress, healthy appearing, well nourished Neck: No carotid bruit bilaterally Muskuloskeletal: Full ROM Respiratory: Normal respiratory effort, clear to auscultation bilaterally throughout all lung swann, no use of accessory muscles Cardio: No JVD, regular rate, regular rhythm, S1 S2 normal, no murmurs, peripheral pulses 2+ throughout Extremities: Full ROM, normal, normal capillary refill, no cyanosis or edema Neuro: Alert and oriented x4, no focal motor deficits Psych: Affect normal, denies suicidal ideation, mental status grossly normal Skin: cath site w/o s/s of hematoma Discharge Data Studies Completed and Pending Completed Studies During Hospitalization Category Date Time Status XR chest 1V portable [id number] Stat Exams 02/05/24 05:39 Completed CV. echo complete* [id number] Routine Ultrasound 02/05/24 08:35 Completed Pending at discharge Category Date Time Status [employer] request for service Stat Exams 02/05/24 06:04 Taken BMP [Basic Metabolic Panel] Routine Lab 02/09/24 09:25 Received Radiology Impressions Chest X-Ray 02/05/24 05:39 IMPRESSION: No acute findings. Laboratory Results WBC 10.38 10^3/uL (3.29-11.43) 02/09/24 09:25 RBC 5.14 10^6/uL (3.85-5.65) 02/09/24 09:25 Hgb 8.70 g/dL (11.27-16.99) L 02/09/24 09:25 Hct 32.7 % (36-47) L 02/09/24 09:25 MCV 63.6 fl (85-98) L 02/09/24 09:25 MCH 16.9 pg (27-33) L 02/09/24 09:25 MCHC 26.6 g/dL (30-55) L 02/09/24 09:25 RDW 19.9 % (12.1-15.1) H 02/09/24 09:25 Plt Count 487 10^3/cmm (157-399) H 02/09/24 09:25 MPV 10.5 fL (7.4-10.4) H 02/09/24 09:25 Neut % (Auto) 60.4 % 02/09/24 09:25 Lymph % (Auto) 29.2 % 02/09/24 09:25 [place] % (Auto) 7.5 % 02/09/24 09:25 Eos % (Auto) 1.6 % 02/09/24 09:25 Baso % (Auto) 0.8 % 02/09/24 09:25 Neut # (Auto) 6.27 10^3/uL (1.8-7.7) 02/09/24 09:25 Lymph # (Auto) 3.0 10^3/uL (0.8-4.8) 02/09/24 09:25 [place] # (Auto) 0.8 10^3/uL (0.2-0.9) 02/09/24 09:25 Eos # (Auto) 0.2 10^3/uL (0.0-0.8) 02/09/24 09:25 Baso # (Auto) 0.1 10^3/uL (0.0-0.1) 02/09/24 09:25 Nucleated RBC % (auto) 0 % 02/09/24 09:25 Nucleated RBCs # 0.0 /100WBC 02/09/24 09:25 D-Dimer 0.44 ug/mLFEU (0-0.59) 02/05/24 05:45 Sodium 139 mmol/L (136-145) 02/07/24 03:27 Potassium 3.3 mmol/L (3.5-5.1) L 02/07/24 03:27 Chloride 99 mmol/L (98-107) 02/07/24 03:27 Carbon Dioxide 27 mmol/L (22-29) 02/07/24 03:27 Anion Gap 16.3 (5-19) 02/07/24 03:27 BUN 12 mg/dL (6-20) 02/07/24 03:27 Creatinine 1.1 mg/dL (0.5-0.9) H 02/07/24 03:27 GFR Calculation 52.2 mL/min (90-130) L 02/07/24 03:27 Glucose 104 mg/dL (65-115) 02/07/24 03:27 Calculated Osmolality 288 mOsm/kg (285-295) 02/07/24 03:27 Calcium 9.6 mg/dL (8.5-10.5) 02/07/24 03:27 Total Bilirubin 0.6 mg/dL (0.15-1.2) 02/05/24 05:45 AST 18 U/L (0-32) 02/05/24 05:45 ALT 11 U/L (0-33) 02/05/24 05:45 Alkaline Phosphatase 101 U/L (35-105) 02/05/24 05:45 Troponin T Baseline 82 ng/L (0-10) H 02/05/24 05:45 Troponin T 120 Minute Cancelled 02/05/24 16:42 Delta Troponin T Cancelled 02/05/24 16:42 Troponin T Hi Sens 6Hr 2812 ng/L (0-10) H 02/05/24 12:34 Troponin T Hi Sens 6Hr Delta 2730 ng/L (0-12) H* 02/05/24 12:34 NT-Pro-B Natriuret Pep 2329 pg/mL (0-125) H 02/05/24 05:45 Total Protein 7.5 g/dL (6.6-8.7) 02/05/24 05:45 Albumin 4.8 g/dL (3.5-5.2) 02/05/24 05:45 Globulin 2.7 g/dL (1.3-4.6) 02/05/24 05:45 Lipase 30 U/L (13-60) 02/05/24 05:45 Procedures Performed Left heart catheterization with balloon angioplasty and stenting of the mid LAD Vitals Last Vital Signs Temp 98.0 F 02/09/24 07:41 Pulse 84 02/09/24 07:41 Resp 15 02/09/24 07:41 BP 116/65 02/09/24 07:41 Pulse Ox 98 02/09/24 07:41 O2 Del Method Room Air 02/09/24 07:41 O2 Flow Rate 2 02/06/24 08:00 Discharge Plan Discharge Patient Disposition: Home Condition: Stable Prescriptions: New amoxicillin-pot clavulanate 875-125 mg Tablet 1 tab PO BID 4 Days Qty: 8 0RF atorvastatin 40 mg Tablet 80 mg PO BEDTIME 30 Days Qty: 30 0RF aspirin 81 mg Tablet,Delayed Release (Dr/Ec) 81 mg PO DAILY 90 Days Qty: 90 3RF furosemide 40 mg Tablet 40 mg PO DAILY@0800 30 Days Qty: 30 0RF clopidogrel 75 mg Tablet 75 mg PO DAILY 90 Days Qty: 90 3RF potassium chloride [Klor-Con M20] 20 mEq Tablet,Er Particles/Crystals 20 meq PO DAILY 30 Days Qty: 30 0RF pantoprazole 40 mg Tablet,Delayed Release (Dr/Ec) 40 mg PO DAILY 30 Days Qty: 30 0RF nitroglycerin 0.4 mg Tablet, Sublingual 0.4 mg sublingual Q5M PRN (Reason: Chest Pain) 30 Days Qty: 20 0RF metoprolol succinate 25 mg Tablet Extended Release 24 Hr 12.5 mg PO DAILY 90 Days Qty: 90 0RF Entresto 24-26 mg Tablet 1 tab PO DAILY 90 Days Qty: 90 0RF Discharge Orders: Discharge Order (Routine); Ordered 02/09/24 Ordered By: Sangita Thurston Referrals: Sangita Thurston SET OFF BLOCKER [Nurse Practitioner] - 7-10 days Onelia Werner FNP [Referring] - 03/11/24 3:40 pm (This is the first available appointment w/ Onelia Werner. The receptionist secretary did suggest calling after Discharge and explaining the need for hospital follow up to see if they have had any cancelations for appointment to be moved up. ) Discharge Diet: Advance as tolerated, Usual diet and As Directed Discharge Activity: Resume usual activity and Increase activity as tolerated Patient Instructions: Metoprolol (By mouth) (Lopressor, Toprol XL), Nitroglycerin (By mouth), Furosemide (By mouth) (Lasix), Potassium Chloride (By mouth), Aspirin (By mouth), Amoxicillin (By mouth), Atorvastatin (By mouth) (Lipitor, Atorvaliq), Clopidogrel (By mouth) (Plavix), Pantoprazole (By mouth) (Protonix), Sacubitril/Valsartan (By mouth) (Entresto, Entresto Sprinkle), Coronary Angioplasty (DC), Hypertension (DC), CHF Stoplight, Opioid Safety, Post Angiogram Home Care Instructions Activity Restrictions/Additional Instructions: Discussed with patient no heavy lifting more than a gallon of milk for [address] No driving for 3 days. Monitor for and report signs or symptoms of bleeding. Monitor for and report s/s of infection such as fever 101 or greater, swelling, redness or pain to the wrist. Plan of Treatment: Continue dual antiplatelet therapy. Continue Entresto. I will evaluate the clinic in 7 to 10 days. Will get lab work at that time. Will repeat echo in 3 months Discharge Attestations Time Spent in Discharge Care*: greater than 30 min Quality Metrics Clinical Quality Measures [ No reported AMI, CVA or VTE this stay] Coding Level of Care Code Acute Code for Chg Fwd Diagnoses NSTEMI (non-ST elevated myocardial infarction) I21.4 CHF (NYHA class IV, ACC/AHA stage D) I50.84 Tooth abscess K04.7 Ischemic cardiomyopathy I25.5
[2024-02-09 10:30] LABS: Anion Gap 17.7 (5-19); Blood Urea Nitrogen 13 mg/dL (6-20); Calcium 9.8 mg/dL (8.5-10.5); Carbon Dioxide 23 mmol/L (22-29); Chloride 100 mmol/L (98-107); Creatinine Clr Calc Pharmacy 68.5043; Glomerular Filtration Rate 58.2 mL/min (90-130); Glucose 109 mg/dL (65-115); Osmolality Calculated 283 mOsm/kg (285-295); Potassium 4.7 mmol/L (3.5-5.1); Sodium 136 mmol/L (136-145)
[2024-02-09 11:23] VITALS: BP 105/64; PULSE 90; RESP 16; TEMP 36.5; O2SAT 99
[2024-02-09 16:00] VITALS: BP 114/76; PULSE 84; RESP 16; TEMP 36.8; O2SAT 99
--- NOTE | 2024-02-10 08:50 | PC.NURSE ---
Patient's called to ask why Zofran was not prescribed upon discharge. Nurse told that would be have to ask her pcp about that. Patient's then started to complain about facility and started cursing and saying he was real pleasant but now his attitude was about to change about that fucking place . Nurse told caller that she did not have to tolerate his cussing and didn't have to listen to it and hung up the phone. Any questions pertaining to patient's discharge medications were answered and wall continue to be answered but conventional mortgage underwriter does not have the time to sit and listen to patient's cuss her out about the organization.
== END 2024-02-09 18:30 | disposition home or self-care (01) | DRG 321 ==
LOC: ER 07:12 → ICU 07:58 → CSU 02-06 17:59
PROVIDERS: Nurse Practitioner Family; Admitting Provider Internal Medicine Cardiovascular Disease; Emergency Provider Emergency Medicine; Family Provider Family Medicine; PCP Family Medicine; Visit Provider Internal Medicine Cardiovascular Disease
PROC: 027034Z Dilation of Coronary Artery, One Artery with Drug-eluting Intraluminal Device, Percutaneous Approach (ICD-10-PCS; principal; 2024-02-05 07:00)
PROC: 027034Z Dilation of Coronary Artery, One Artery with Drug-eluting Intraluminal Device, Percutaneous Approach (ICD-10-PCS; 2024-02-05 07:00)
DX: I21.4 Non-ST elevation (NSTEMI) myocardial infarction (principal); I50.21 Acute systolic (congestive) heart failure; F17.200 Nicotine dependence, unspecified, uncomplicated; I11.0 Hypertensive heart disease with heart failure; E78.5 Hyperlipidemia, unspecified; K04.7 Periapical abscess without sinus; I25.5 Ischemic cardiomyopathy; I34.0 Nonrheumatic mitral (valve) insufficiency; I25.10 Atherosclerotic heart disease of native coronary artery without angina pectoris; Z79.02 Long term (current) use of antithrombotics/antiplatelets; Z79.82 Long term (current) use of aspirin; Z82.49 Family history of ischemic heart disease and other diseases of the circulatory system
CPT/HCPCS: 36415; 71045; 80048; 80053; 83690; 83880; 84484; 85025; 85347; 85378; 93005; 93306; 93458; 96365; 96367; 96374; 96375; 96376; 99152; 99153; 99285; C1725; C1769; C1874; C1887; C1894; C9600; J1644; J1940; J2250; J2270; J2405; J3010; J3480; J3490; J7030; Q9967

== ENCOUNTER → 2024-02-26 13:34 | Outpatient (BNVA) | payer SELFPAY | PROVIDERS: Family Provider Family Medicine; PCP Family Medicine; Visit Provider Nurse Practitioner Family | DX: I25.5 Ischemic cardiomyopathy (principal); I50.20 Unspecified systolic (congestive) heart failure | CPT/HCPCS: 36415; 80048; 83880 ==